=== PATIENT | male | born 1985 | race Caucasian/White ===

== ENCOUNTER 2020-06-01 08:51 | Outpatient (REF) | payer OTHER, SELFPAY ==
[2020-06-01 10:33] LABS: COVID-19 Test Negative (Negative)
== END 2020-06-01 08:52 | disposition home or self-care (01) ==
LOC: HO.LAB 08:51
PROVIDERS: PCP Nurse Practitioner Family; Visit Provider Internal Medicine
DX: Z20.828 Contact with and (suspected) exposure to other viral communicable diseases (principal)
CPT/HCPCS: 87635

== ENCOUNTER 2020-06-02 17:50 | Outpatient (REF) | payer OTHER, SELFPAY ==
[2020-06-02 20:30] LABS: SARS COV2 PCR INHOUSE NEGATIVE (Negative)
== END 2020-06-02 17:51 | disposition home or self-care (01) ==
LOC: HO.LAB 17:50
PROVIDERS: Visit Provider Internal Medicine
DX: Z20.828 Contact with and (suspected) exposure to other viral communicable diseases (principal)
CPT/HCPCS: 87635

== ENCOUNTER 2020-06-05 10:50 | Outpatient (REF) | payer OTHER, SELFPAY ==
[2020-06-05 11:24] LABS: COVID-19 Test Negative (Negative)
== END 2020-06-05 10:51 | disposition home or self-care (01) ==
LOC: HO.LAB 10:50
PROVIDERS: Visit Provider Internal Medicine
DX: Z20.828 Contact with and (suspected) exposure to other viral communicable diseases (principal)
CPT/HCPCS: 87635

== ENCOUNTER 2020-06-15 14:21 | Outpatient (REF) | payer OTHER, SELFPAY ==
[2020-06-16 06:43] LABS: COVID-19 Test Negative (Negative)
== END 2020-06-15 14:22 | disposition home or self-care (01) ==
LOC: HO.LAB 14:21
PROVIDERS: Visit Provider Internal Medicine
DX: Z20.828 Contact with and (suspected) exposure to other viral communicable diseases (principal)
CPT/HCPCS: 87635

== ENCOUNTER 2020-08-25 20:53 | Outpatient (REF) | payer OTHER, SELFPAY ==
[2020-08-25 21:22] LABS: COVID-19 Test Negative (Negative)
== END 2020-08-25 20:54 | disposition home or self-care (01) ==
LOC: HO.EMPCOV 20:53
PROVIDERS: Visit Provider Internal Medicine
DX: Z20.822 Contact with and (suspected) exposure to COVID-19 (principal)
CPT/HCPCS: 36415; 87635

== ENCOUNTER 2021-07-25 11:19 | Outpatient (REF) | payer OTHER, SELFPAY ==
[2021-07-25 11:41] LABS: COVID-19 Test Negative (Negative); IDNOW Serial# 9DD0AD1C
== END 2021-07-25 11:20 | disposition home or self-care (01) ==
LOC: HO.LAB 11:19
PROVIDERS: Visit Provider Internal Medicine
DX: Z20.822 Contact with and (suspected) exposure to COVID-19 (principal)
CPT/HCPCS: 36415; 87635

== ENCOUNTER 2021-08-18 07:27 | Outpatient (REF) | payer OTHER, SELFPAY ==
[2021-08-18 08:08] LABS: COVID-19 Test Negative (Negative); IDNOW Serial# 9DD0AD1C
== END 2021-08-18 07:28 | disposition home or self-care (01) ==
LOC: HO.LAB 07:27
PROVIDERS: Visit Provider Internal Medicine
DX: Z20.822 Contact with and (suspected) exposure to COVID-19 (principal)
CPT/HCPCS: 87635

== ENCOUNTER 2021-08-25 08:51 | Outpatient (REF) | payer OTHER, SELFPAY ==
[2021-08-25 09:18] LABS: COVID-19 Test Negative (Negative)
== END 2021-08-25 08:52 | disposition home or self-care (01) ==
LOC: HO.LAB 08:51
PROVIDERS: Visit Provider Internal Medicine
DX: Z20.822 Contact with and (suspected) exposure to COVID-19 (principal)
CPT/HCPCS: 87635

== ENCOUNTER 2021-11-09 14:10 | Outpatient (REF) | payer OTHER, SELFPAY ==
--- NOTE | ~2021-11-09 | XR_ITS ---
EXAMINATION: XR CHEST CLINICAL INFORMATION: Wheezing COMPARISON: None TECHNIQUE: 2 views of the chest were obtained. FINDINGS: No significant abnormality is noted involving the heart, lungs, mediastinum, bony thorax or soft tissues. XR/XR chest 2V IMPRESSION: Unremarkable examination.
== END 2021-11-09 14:11 | disposition home or self-care (01) ==
LOC: HO.HMGCX 14:10
PROVIDERS: PCP Nurse Practitioner Family; Visit Provider Nurse Practitioner Family
DX: R06.2 Wheezing (principal)
CPT/HCPCS: 71046

== ENCOUNTER 2023-04-04 08:52 | Outpatient (AMB) | payer OTHER, SELFPAY ==
[2023-04-04 09:06] VITALS: BP 120/78; PULSE 56; O2SAT 98; BMI 23.9
--- NOTE | 2023-04-04 09:06 | MHC.PC.OV ---
Vital Signs 04/04/23 09:06 Height 5 ft 9.6 in Weight 164 lb 6 oz BMI 23.9 BP 120/78 Blood Pressure Location Lt brachial Position Sitting Pulse 56 Pulse Source Pulse Oximeter Pulse Oximetry (%) 98 Oxygen Delivery Method Room Air Intake Visit Reasons: Annual PE Allergies No Known Allergies [No Known Allergies*] Allergy (Verified 04/04/23 09:08) Medication List - Last Reconciled 04/04/23 by FRANCISCO Mccabe fluoxetine (Prozac) 10 mg PO DAILY fluoxetine (Prozac) 20 mg PO DAILY Tobacco use date assessed: 04/04/23 Dental Screening Dental Screen Date: 04/04/23 Did you have a dental visit in the last 12 months?: No Did you have a dental problem in the last 6 months where you did not have access to dental care?: No Was dental information given to patient?: Patient has dentist HPI Annual PE HPI Details Pt is here for a PE. Will order labs. Pt c/o tenderness to his right 1st MTP joint for months. Will order xr and check uric acid. Pt is also hard of hearing, will refer for hearing screen. 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 Brother No problems noted. Son No problems noted. Son No problems noted. Social History Housing: House Alcohol intake: never Patient Tobacco Use Status: Never used Tobacco e-Cigarette/Vaping Use: Never Used Second Hand Smoke Exposure: No service: No Current occupational status: employed Current occupation: [employer] Current occupational exposures/hazards: Yes Cognitive needs: No Hearing needs: No Vision needs: No Questionnaire Thrive Questionnaire Date Thrive assessed: 11/09/21 DWAIN-7 AMB Questionnaire DWAIN-7 Date DWAIN - 7 assessed: 11/09/21 Source: Developed by Drs. Omari Saldivar, Juliette North, Maximiliano Franco and colleagues, with an educational kellen from [employer]). Review of Systems Const Denies chills and Denies fever(s) Eyes Denies blurry vision ENT Denies vertigo, Denies dizziness and Denies sore throat Card Denies chest pain at rest, Denies chest pain with activity, Denies diaphoresis, Denies dyspnea and Denies dyspnea on exertion Resp Denies cough, Denies dyspnea, Denies dyspnea on exertion and Denies wheezing GI Denies abdominal pain, Denies melena, Denies hematochezia, Denies constipation, Denies diarrhea and Denies loose stools Denies hematuria Musc Denies numbness and Denies tingling Skin/Breast Denies lesions Neuro Denies vertigo, Denies dizziness, Denies numbness and Denies tingling Psych Denies anxiety, Denies depression, Denies homicidal ideation, Denies suicidal ideation and Denies other (substance abuse) Aller/Immun Denies wheezing Physical exam (Primary Care) Vital Signs: Last Vital Signs Pulse 56 04/04/23 09:06 BP 120/78 04/04/23 09:06 Pulse Ox 98 04/04/23 09:06 Oxygen Delivery Method Room Air 04/04/23 09:06 BMI result Body Mass Index 23.9 Tobacco/Smoking Status: Tobacco use Status Tobacco use date assessed 04/04/23 04/04/23 09:13 Patient Tobacco Use Status Never used Tobacco 04/04/23 09:13 e-Cigarette/Vaping Use Never Used 04/04/23 09:13 Thrive Assessment: Date of Thrive Assessment Date Thrive assessed 11/09/21 04/04/23 09:13 Const General: cooperative Nutritional Appearance: well nourished Orientation/consciousness: patient oriented x3 HENMT Head: Yes normal to inspection, Yes normocephalic and Yes atraumatic Ears: TM's normal bilaterally Eyes General: appearance normal, both eyes and all related structures Alignment and Position: alignment normal and position normal Neck Neck: Yes normal visual inspection and Yes no lymphadenopathy Thyroid: Thyroid normal Resp Effort & Inspection: normal respiratory effort Auscultation: clear to auscultation bilaterally Cardio Rate: regular rate Rhythm: regular rhythm Heart sounds: S1 normal heart sound present, S2 normal heart sound present and no murmurs GI Palpation (GI): Soft to palpation and nontender Auscultation: normal bowel sounds Male General Exam: Yes normal external exam Penis: normal penis Scrotum: scrotum normal, testes descended bilaterally and no inguinal hernias Testes: no testicular mass Skin Rashes: no rashes Neuro General: patient oriented x3, moves all extremities, no focal motor deficits and deep tendon reflexes 2+ bilaterally Romberg Test: Negative Extrem Other: right 1st MTP joint pronounced, not TTP Psych Appearance: grossly normal Mental Status: mental status grossly normal Speech and movement: Normal speech and movement present Affect: normal affect Attitude: cooperative Thought process: Normal thought process present Thought content: Normal thought content present Insight: Good insight present (Psych) Judgement: Good judgement present (Psych) Assessment and Plan Assessment & Plan (1) Physical exam: Code(s): Z00.00 - Encounter for general adult medical examination without abnormal findings Plan: Labs ordered (2) Toe pain, right: Code(s): M79.674 - Pain in right toe(s) Plan: XR and uric acid ordered (3) KAKE (hard of hearing): Code(s): H91.90 - Unspecified hearing loss, unspecified ear Plan: Referred for hearing screen Plan The patient agreed to the use of a medical registrar for this encounter. Scribed for FRANCISCO Henry by Debra Vora medical registrar, on 04/04/2023 at 09:20 EST. Orders: Orders Uric Acid Today M79.674 - Pain in right toe(s) XR toe RT min 2V Today M79.674 - Pain in right toe(s) Referrals Speech and Hearing Referral H91.90 - Unspecified hearing loss, unspecified ear Coding Level of Care Code Est Pt Prev Care [id number]) Diagnoses Physical exam Z00.00 Toe pain, right M79.674 KAKE (hard of hearing) H91.90
== END 2023-04-04 09:35 | disposition home or self-care (01) ==
PROVIDERS: Visit Provider Nurse Practitioner Family
DX: Z00.00 Encounter for general adult medical examination without abnormal findings (principal); M79.674 Pain in right toe(s); H91.90 Unspecified hearing loss, unspecified ear
CPT/HCPCS: 99395

== ENCOUNTER 2023-04-04 09:36 | Outpatient (REF) | payer OTHER, SELFPAY ==
--- NOTE | ~2023-04-04 | XR_ITS ---
EXAMINATION: XR TOES, RIGHT CLINICAL INFORMATION: Pain in toe. COMPARISON: None available. TECHNIQUE: 3 views of the right 1st toe were obtained. FINDINGS: There are no fractures or dislocations. No joint effusion is identified. No bone, joint or soft tissue abnormality is demonstrated. XR/XR toe RT min 2V IMPRESSION: Unremarkable examination.
[2023-04-04 11:15] LABS: MANUAL DIFF FLAG NO
[2023-04-04 11:39] LABS: Basophils Percent Auto 0.7 % (0-2); Eosinophils Absolute Auto 0.2 X10*3/uL (0.0-0.4); Eosinophils Percent Auto 3.6 % (0-4); Hematocrit 42.5 % (42.0-52.0); Hemoglobin 14.1 g/dl (14.0-18.0); Imm Gran Abs Auto 0.01 X10*3/uL (0.00-0.03); Imm Gran Pct Auto 0.2 % (0.0-0.4); Lymphocytes Absolute Auto 1.5 X10*3/uL (1.2-4.9); Lymphocytes Percent Auto 34.8 % (20-40); Mean Corpuscular HGB Conc 33.2 g/dl (31.0-36.0); Mean Corpuscular Hemoglobin 31.2 pg (27.0-33.0); Monocytes Absolute Auto 0.5 X10*3/uL (0.1-1.2); Monocytes Percent Auto 10.9 % (2-11); Neutrophils Absolute Auto 2.2 x10*3/uL (2.0-8.3); Neutrophils Percent Auto 49.8 % (45-73); Platelet Count 208 X10*3/uL (160-400); Red Blood Count 4.52 X10*6/uL (4.60-5.80); Red Cell Distribution Width 12.8 % (11.0-16.0); White Blood Count 4.4 X10*3/uL (4.8-10.8)
[2023-04-04 12:25] LABS: Alanine Aminotransferase 47 U/L (0-40); Albumin Level 4.2 g/dL (3.5-5.0); Alkaline Phosphatase 47 U/L (39-117); Anion Gap 11 (12-20); Aspartate Amino Transferase 29 U/L (5-37); Bilirubin Total 0.4 mg/dL (0.0-1.0); Blood Urea Nitrogen 13 mg/dL (9-16); Calcium 9.8 mg/dL (8.4-10.2); Carbon Dioxide 28 mmol/L (22-29); Chloride 106 mmol/L (96-108); Cholesterol 241 mg/dL (<200); Estimated Glomerular Filt Rate > 60; Glucose Fasting 92 mg/dL (60-99); HDL Cholesterol 70 mg/dL (>40); LDL Cholesterol Calculated 160 mg/dL (<100); Potassium 4.1 mmol/L (3.3-5.1); Sodium 141 mmol/L (135-145); TSH reflex Free T4 1.15 uIU/mL (0.32-4.0); Triglycerides 55 mg/dL (<150); Uric Acid 4.9 mg/dL (3.4-7.0)
[2023-04-04 14:15] LABS: Appearance Urine Clear; Color Urine Yellow; Glucose Urine UA Negative (Negative); Leukocyte Esterase Urine Negative (Negative); Nitrite Urine Negative (Negative); PH 7.5 (5.0-9.0); Specific Gravity - Urine 1.015 (1.005-1.025); Urine Blood Negative (Negative); Urine Ketones Negative (Negative); Urine Protein Negative (Neg-Trace)
== END 2023-04-04 09:37 | disposition home or self-care (01) ==
LOC: HO.HMGCX 09:36
PROVIDERS: PCP Nurse Practitioner Family; Visit Provider Nurse Practitioner Family
DX: M79.674 Pain in right toe(s) (principal); Z00.00 Encounter for general adult medical examination without abnormal findings
CPT/HCPCS: 36415; 73660; 80053; 80061; 81003; 84443; 84550; 85025

== ENCOUNTER 2023-05-11 08:16 | Outpatient (REF) | payer OTHER, SELFPAY ==
--- NOTE | ~2023-05-11 | US_ITS ---
EXAMINATION: US ABDOMEN COMPLETE CLINICAL INFORMATION: Abnormal levels of other serum enzymes. COMPARISON: CT abdomen and pelvis 10/23/2018. TECHNIQUE: Real-time imaging of the abdominal viscera. FINDINGS: PANCREAS: Normal. ABDOMINAL AORTA: The proximal, mid, and distal segments are normal in caliber. INFERIOR VENA CAVA: Visualized portions are normal. LIVER: Normal. The liver is normal in size. The liver contour is normal. Parenchymal echogenicity is normal. No focal hepatic lesion. There is no intrahepatic biliary duct dilatation seen. GALLBLADDER: Normal. The gallbladder is physiologically distended without evidence of stones, sludge, polyps, wall thickening or pericholecystic fluid. COMMON BILE DUCT: Normal in caliber measuring 0.5 cm in diameter. RIGHT KIDNEY: Normal. No hydronephrosis. No renal calculi or focal parenchymal lesions. The kidney measures 12.4 cm in maximum dimension. LEFT KIDNEY: Normal. No hydronephrosis. No renal calculi or focal parenchymal lesions. The kidney measures 10.8 cm in maximum dimension. SPLEEN: Normal. The spleen measures 10.1 cm in maximum dimension. FREE FLUID: None. US/US abdomen complete IMPRESSION: Unremarkable examination.
[2023-05-11 10:26] LABS: Alanine Aminotransferase 24 U/L (0-40); Albumin Level 4.4 g/dL (3.5-5.0); Alkaline Phosphatase 40 U/L (39-117); Anion Gap 15 (12-20); Aspartate Amino Transferase 21 U/L (5-37); Bilirubin Total 0.4 mg/dL (0.0-1.0); Blood Urea Nitrogen 14 mg/dL (9-16); Calcium 9.4 mg/dL (8.4-10.2); Carbon Dioxide 25 mmol/L (22-29); Chloride 105 mmol/L (96-108); Cholesterol 234 mg/dL (<200); Estimated Glomerular Filt Rate > 60; Glucose Fasting 94 mg/dL (60-99); HDL Cholesterol 69 mg/dL (>40); LDL Cholesterol Calculated 157 mg/dL (<100); Potassium 4.4 mmol/L (3.3-5.1); Sodium 141 mmol/L (135-145); Total Protein 6.9 g/dL (6.5-8.0); Triglycerides 44 mg/dL (<150)
[2023-05-11 10:45] LABS: HBS Num1 81.61 mIU/mL (0-7.99); HBc Num1 0.06 S/CO (0.00-0.79); HBsAGNum1 0.42 S/CO (0.00-0.99); Hepatitis A Antibody IgM 0.19 Index (0-0.79); Hepatitis B Core Antibody Nonreactive (Nonreactive); Hepatitis B Surface Antigen Negative (Negative); ~HepC Num1 0.04 S/CO (0.00-0.79); ~Hepatitis A Antibody IgM Nonreactive (Nonreactive); ~Hepatitis B Surface Antibody REACTIVE (Nonreactive); ~Hepatitis C Antibody Nonreactive (Nonreactive)
== END 2023-05-11 08:17 | disposition home or self-care (01) ==
LOC: HO.US 08:16
PROVIDERS: Visit Provider Nurse Practitioner Family
DX: R74.8 Abnormal levels of other serum enzymes (principal); E78.5 Hyperlipidemia, unspecified
CPT/HCPCS: 36415; 76700; 80053; 80061; 86704; 86706; 86709; 86803; 87340

== ENCOUNTER 2024-06-03 08:10 | Emergency (ER) | payer OTHER, SELFPAY ==
--- NOTE | ~2024-06-03 | CT_ITS ---
EXAMINATION: CT ABDOMEN AND PELVIS WITH CONTRAST CLINICAL INFORMATION: Severe lower abdominal pain with nausea and vomiting COMPARISON: 10/23/2018 TECHNIQUE: Multidetector volumetric images were obtained from the superior aspect of the liver through the pubic symphysis following administration 85 mL of Omnipaque 350 intravenous contrast. Sagittal and coronal reformatted images were obtained on the technologist's workstation. Oral contrast: No This CT examination was performed using dose optimization techniques as appropriate, variously including the following: *Automated exposure control *Adjustment of mA and/or kV according to patient size (this includes techniques or standardized protocols for targeted exams where dose is matched to indication/reason for exam; i.e. extremities or head) *Use of iterative reconstruction technique DLP: 379 mGy-cm FINDINGS: [employer] INTERN: Nonobstructive bowel pattern. Clear lungs LUNG BASES: The visualized lung bases are unremarkable. LIVER, GALLBLADDER, AND BILIARY TREE: The liver is normal in size, shape, and attenuation. No focal hepatic lesion or biliary ductal dilatation is present. The gallbladder is unremarkable with no evidence of radiopaque gallstones, gallbladder wall thickening, or obvious pericholecystic inflammatory changes. PANCREAS: Poorly delineated from unopacified bowel loops. No definite abnormality. SPLEEN: Unremarkable. ADRENAL GLANDS: Unremarkable. KIDNEYS AND URETERS: The kidneys are normal in size, shape, and attenuation. No hydronephrosis, hydroureter, or calculi seen. No perinephric stranding. BLADDER: Unremarkable. GASTROINTESTINAL TRACT: Study limited due to paucity of fat and the lack of oral contrast. Unremarkable stomach. Possible distended thickened left upper quadrant jejunal loop. Nonobstructive bowel pattern. Appendix cannot be adequately identified. No significant fecal retention. ABDOMINAL WALL: No significant hernia is appreciated. LYMPH NODES: Normal. VASCULAR: Unremarkable. PELVIC VISCERA: Symmetric mildly prominent seminal vesicles. No free fluid or free air. OSSEOUS STRUCTURES: Unremarkable. CT/CT abdomen pelvis w IV con IMPRESSION: 1. Study limited by paucity of fat and lack of oral contrast. 2. Question distended thickened left upper quadrant jejunal loop. 3. Nonvisualization of the appendix. 4. Consider repeat study with oral contrast. Fleischner guidelines were followed. Electronically signed by: Sherrie Arteaga MD 06/03/2024 12:38 PM EDT
[2024-06-03 08:13] VITALS: BP 125/77; PULSE 62; RESP 16; TEMP 36.6; O2SAT 100; BMI 24.4
--- NOTE | 2024-06-03 08:21 | ED.ABDPAIN ---
HPI - Abdominal Pain General Chief Complaint: Abdominal Pain Stated Complaint: Vomiting Time Seen by Provider: 06/03/24 08:15 Source: patient Mode of arrival: ambulatory Limitations: no limitations History of Present Illness ED Provider: Jo Ann Storm PA-C HPI narrative: 39 yo male presents to the ER for evaluation of of abdominal pain, nausea and vomiting that started last night. Patient reports he had some upset stomach, abdominal cramping and difficulty having bowel movements yesterday during the day. He had decreased p.o. intake throughout the day. States last night after he put his kids to bed he developed nausea and recurrent vomiting. He developed lower abdominal pain in the middle that shoots up to the upper portion of his abdomen. The pain has been constant, doubling him over in pain, with episodes of sweating. No episodes of diarrhea but he did have a couple of bowel movements yesterday, they were small and loose. No blood in his bowel movements or his vomit. No fevers but has been having sweats and chills. He reports the pain in his abdomen is severe and constant. His children have recently had strep throat. He reports sore throat due to vomiting. MD elicited complaint: abdominal pain Pertinent past history: none Onset (ago): hour(s) Pain Consistency: constant Location: suprapubic Severity: severe Quality: cramping and stabbing Radiation: epigastric Migration to: no migration Exacerbating factors: nothing Relieving factors: nothing Context: sick contacts Associated symptoms: nausea and vomiting Related Data Home Medications ?Medication ?Instructions ?Recorded ?Confirmed fluoxetine 10 mg capsule (Prozac) 10 mg PO DAILY 04/04/23 04/04/23 fluoxetine 20 mg capsule (Prozac) 20 mg PO DAILY 04/04/23 04/04/23 Previous Rx's ?Medication ?Instructions ?Recorded ondansetron 4 mg disintegrating 4 mg PO Q8H PRN nausea and 06/03/24 tablet vomiting #14 tabs Allergies Allergy/AdvReac Type Severity Reaction Status Date / Time No Known Allergies Allergy Verified 06/03/24 08:13 [No Known Allergies*] Review of Systems Review of Systems Yes all other systems are reviewed and are negative PMFSH Past Medical History Medical History Chilling 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 Brother No problems noted. Son No problems noted. Son No problems noted. Social History Social History Housing: House Alcohol intake: never Patient Tobacco Use Status: Never used Tobacco Smoked in Last 30 Days: No e-Cigarette/Vaping Use: Never Used Second Hand Smoke Exposure: No Use of substances other than those prescribed or required for medical reasons: No Advance Directives: No Advance Directives Information Provided: Yes Do you have a plan to hurt others: No Plan service: No Current occupational status: employed Current occupation: [employer] Current occupational exposures/hazards: Yes Cognitive needs: No Hearing needs: No Vision needs: No Physical Exam ED Vital Signs: Vital Signs - 24 hr 06/03/24 08:13 06/03/24 11:17 Temperature 97.8 F 98.0 F Pulse Rate 62 64 Respiratory Rate 16 13 Blood Pressure 125/77 122/70 Pulse Oximetry 100 97 Oxygen Delivery Method Room Air Room Air BMI result Body Mass Index 24.4 Appearance: Alert. Oriented X3. Appears pale, appears very uncomfortable Head: normocephalic, atraumatic. Eyes: Pupils equal, round and reactive to light. ENT: Pharynx normal. No tonsillar swelling or exudate. Neck: Normal inspection. Neck supple. CVS: Normal heart rate and rhythm. Pulses normal. Respiratory: No respiratory distress. Breath sounds normal. Abdomen: Soft, diffusely tender +BS x4 Skin: Skin warm and dry. Normal skin color. Normal skin turgor. No rashes. Extremities: No lower extremity edema. No joint swelling. Neuro/psych: Oriented X 3. No motor deficit. No sensory deficit. CN II-XII intact. Normal speech and cognition. Medical Decision Making Medical Decision Making MDM Narrative: 39-year-old male presents to the ER for evaluation of severe lower abdominal pain associated with nausea and vomiting that started last night. He does have known sick contacts with his children who had strep throat at home. He arrives to the ER pale, unwell appearing, nauseous and in severe pain. His abdomen is tender. IV was established and he was given IV Zofran and morphine. Lab work is reassuring with no leukocytosis, no significant metabolic derangement. Normal renal function, normal lipase. He had minimal relief after Zofran and morphine so he was given a dose of IV Dilaudid and a 2nd dose of Zofran. This significantly improved his symptoms. A CT scan of his abdomen was performed which was limited however did not show any evidence of appendicitis, no significant colonic bowel loop dilatation. There was a question of distended or thickened left upper quadrant jejunal loop. No evidence of obstruction. Patient is overall clinically significantly improved. He is tolerating p.o.. No need for repeating the CT scan with oral contrast. Most likely viral gastroenteritis. He is stable for discharge home with supportive care and outpatient follow-up. Differential Diagnosis Differential Diagnoses: The differential diagnosis associated with the presentation includes Gastroenteritis, cholecystitis, appendicitis, colitis, bowel obstruction, mesenteric adenitis Admission/Observation Consideration of admission/observation: Escalation of care including admission/observation considered Lab Data MDM Lab Attestation statement: I reviewed the patient's lab results. No leukocytosis, no major metabolic derangement, slight hyperglycemia without anion gap 06/03/24 08:28 06/03/24 08:28 Labs: Lab Results 06/03/24 06/03/24 Range/Units 08:28 13:07 WBC 7.9 (4.8-10.8) X10*3/uL RBC 4.57 L (4.60-5.80) X10*6/uL Hgb 14.7 (14.0-18.0) g/dl Hct 41.4 L (42.0-52.0) % MCV 90.6 (80.0-98.0) fL MCH 32.2 (27.0-33.0) pg MCHC 35.5 (31.0-36.0) g/dl RDW 12.4 (11.0-16.0) % Plt Count 287 D (160-400) X10*3/uL MPV 9.6 (9.4-12.4) fL Immature Gran % (Auto) 0.5 H (0.0-0.4) % Neut % (Auto) 81.1 H (45-73) % Lymph % (Auto) 10.1 L (20-40) % [place] % (Auto) 7.9 (2-11) % Eos % (Auto) 0.0 (0-4) % Baso % (Auto) 0.4 (0-2) % Lymph # (Auto) 0.8 L (1.2-4.9) X10*3/uL [place] # (Auto) 0.6 (0.1-1.2) X10*3/uL Eos # (Auto) 0.0 (0.0-0.4) X10*3/uL Baso # (Auto) 0.0 (0.0-0.2) X10*3/uL Abs Immat Gran (auto) 0.04 H (0.00-0.03) X10*3/uL Absolute Neuts (auto) 6.4 (2.0-8.3) x10*3/uL Absolute Nucleated RBC 0.000 (0.0-0.012) X10*3/uL Nucleated RBC % (auto) 0.0 (0.0-0.2) /100WBC Sodium 143 (135-145) mmol/L Potassium 3.8 (3.3-5.1) mmol/L Chloride 110 H (96-108) mmol/L Carbon Dioxide 22 (22-29) mmol/L Anion Gap 15 (12-20) BUN 13 (9-16) mg/dL Creatinine 1.05 (0.5-1.4) mg/dL Estim Creat Clear Calc 97.5 Estimated GFR > 60 Random Glucose 179 H (60-115) mg/dL Calcium 10.4 H D (8.4-10.2) mg/dL Magnesium 1.7 (1.6-2.6) mg/dL Total Bilirubin 0.8 (0.0-1.0) mg/dL Direct Bilirubin 0.2 (0.0-0.5) mg/dL AST 24 (5-37) U/L ALT 20 (0-40) U/L Alkaline Phosphatase 48 (39-117) U/L Total Protein 7.2 (6.5-8.0) g/dL Albumin 4.8 (3.5-5.0) g/dL Lipase 14 (8-78) U/L Urine Color Yellow Urine Appearance Clear Urine pH 7.5 (5.0-9.0) Ur Specific [place] >= 1.030 H (1.005-1.025) Urine Protein Trace (Neg-Trace) mg/dL Urine Glucose (UA) Negative (Negative) mg/dL Urine Ketones 40 (Negative) mg/dL Urine Blood Negative (Negative) Urine Nitrite Negative (Negative) Ur Leukocyte Esterase Negative (Negative) Influenza Type A (PCR) NEGATIVE (Negative) Influenza Type B (PCR) NEGATIVE (Negative) RSV RNA Qual (PCR) NEGATIVE (Negative) SARS-CoV-2 RNA (RT-PCR) NEGATIVE (Negative) S. pyogenes GrpA ARNIE Negative (Negative) Independent Interpretation I performed an independent interpretation of an: CT Scan Interpretation: CT scan without any significant dilated loops of bowel, unable to visualize the appendix, no significant abnormality appreciated, agrees radiology read Radiology Impression Discussion of test interpretation with radiology: I have reviewed the radiologist's reading. Radiologist Impression: CT/CT abdomen pelvis w IV con IMPRESSION: 1. Study limited by paucity of fat and lack of oral contrast. 2. Question distended thickened left upper quadrant jejunal loop. 3. Nonvisualization of the appendix. 4. Consider repeat study with oral contrast. Independent Historian Clinical information obtained from an independent historian. History obtained from or confirmed by: Spouse External Record Review External record reviewed: Outpatient record, Prior outpatient labs and Prior outpatient radiology Tests considered The following testing was considered but not selected: CT scan with oral contrast was considered however he improved dramatically he was able to tolerate p.o., pain much improved Prescription Management I considered prescription management with: Pain Medication and Antibiotic Medications Administered Discontinued Medications Generic Name Dose Route Start Last Admin Trade Name Freq PRN Reason Stop Dose Admin Hydromorphone HCl 1 mg 06/03/24 08:53 06/03/24 09:04 Hydromorphone Hcl 1 Mg/Ml Syringe IVPUSH 06/03/24 08:54 1 mg ONCE ONE Administration Protocol Lactated Ringer's 1,000 mls @ 999 mls/hr 06/03/24 08:15 06/03/24 09:32 Lr IV 06/03/24 09:15 Infused .Q1H1M YAMIL Infusion Iohexol 100 ml 06/03/24 12:10 06/03/24 12:10 Iohexol 350 Mg/Ml 100 Ml Infus..Btl IV 06/03/24 12:11 85 ml ONCE ONE Administration Morphine Sulfate 4 mg 06/03/24 08:16 06/03/24 08:31 Morphine Sulfate 4 Mg/Ml Cartridge IVPUSH 06/03/24 08:17 4 mg ONCE ONE Administration Protocol Ondansetron HCl 4 mg 06/03/24 08:16 06/03/24 08:30 Ondansetron Hcl 4 Mg/2 Ml Vial IVPUSH 06/03/24 08:17 4 mg ONCE ONE Administration Ondansetron HCl 4 mg 06/03/24 08:53 06/03/24 09:01 Ondansetron Hcl 4 Mg/2 Ml Vial IVPUSH 06/03/24 08:54 4 mg ONCE ONE Administration Critical Care Time Critical Care Time Critical Care Time: Yes Total Critical Care Time: 32 Attestation: I have personally provided critical care time exclusive of time spent on separately billable procedures. Time includes review of lab data, radiology results, bedside re-evaluation of mental status and hemodynamics after administration of multiple IV doses of narcotics and monitoring for potential decompensation. Intervention performed as documented. Discharge Plan Discharge Clinical Impression: Gastroenteritis Patient Disposition: Home, Self-Care Instructions: Gastroenteritis (DC) Additional Instructions: You lab workup today was unremarkable. Your urine test was negative for infection. You most likely have a viral GI bug also known as gastroenteritis. Treatment is supportive care, symptoms usually resolve on their own in 48-72 hours. Recommend rest and plenty of oral hydration. Stick to a bland diet like soup and toast while you are not feeling well. Take the prescribed medication as needed for nausea. Recommend over the counter Pepto Bismol or Imodium for upset stomach and diarrhea. Follow up with your doctor as needed. If you develop new or worsening symptoms call 911 or come back to the ER for further evaluation. Prescriptions: New ondansetron 4 mg tablet,disintegrating 4 mg PO Q8H PRN (Reason: nausea and vomiting) Qty: 14 0RF No Action fluoxetine [Prozac] 10 mg capsule 10 mg PO DAILY fluoxetine [Prozac] 20 mg capsule 20 mg PO DAILY Stand Alone Forms: Work/School Release Print Language: Georgian
[2024-06-03] MEDS: ondansetron HCL 4 MG/2 ML VIAL IVPUSH ×2 (08:30→09:01)
[2024-06-03] MEDS: Morphine Sulfate 4 MG/ML CARTRIDGE IVPUSH (08:31)
[2024-06-03] MEDS: Lactated Ringers 1,000 ML 999 ML IV (08:36)
[2024-06-03 08:43] LABS: MANUAL DIFF FLAG NO
[2024-06-03 08:44] LABS: Basophils Percent Auto 0.4 % (0-2); Hematocrit 41.4 % (42.0-52.0); Hemoglobin 14.7 g/dl (14.0-18.0); Imm Gran Abs Auto 0.04 X10*3/uL (0.00-0.03); Imm Gran Pct Auto 0.5 % (0.0-0.4); Lymphocytes Absolute Auto 0.8 X10*3/uL (1.2-4.9); Lymphocytes Percent Auto 10.1 % (20-40); Mean Corpuscular HGB Conc 35.5 g/dl (31.0-36.0); Mean Corpuscular Hemoglobin 32.2 pg (27.0-33.0); Mean Corpuscular Volume 90.6 fL (80.0-98.0); Mean Platelet Volume 9.6 fL (9.4-12.4); Monocytes Absolute Auto 0.6 X10*3/uL (0.1-1.2); Monocytes Percent Auto 7.9 % (2-11); Neutrophils Absolute Auto 6.4 x10*3/uL (2.0-8.3); Neutrophils Percent Auto 81.1 % (45-73); Platelet Count 287 X10*3/uL (160-400); Red Blood Count 4.57 X10*6/uL (4.60-5.80); Red Cell Distribution Width 12.4 % (11.0-16.0); White Blood Count 7.9 X10*3/uL (4.8-10.8)
--- NOTE | 2024-06-03 08:45 | PC.NURSE ---
patient presents from home with cc of abdominal pain and vomiting that started less than one day ago. patient states 2 kids are at home with strep throat, but also recently started complaining of abdominal pain as well. patient denies any fevers, has some diffuse tenderness to abdomen, patient presents pale and appears uncomfortable, endorsing 5-6/10 abdominal pain and associated nausea and vomiting, most recent episode of vomiting was PHYSIATRIST. patient afebrile in triage, 18g PIV placed in left bicep, blood work obtained and patient medicated per OCT. educated patient on need for urine sample. patient provided with warm blankets for comfort. awaiting lab results at this time
[2024-06-03 08:56] LABS: IDNOW Serial# 6674DD1D; Strep A Nucleic Acid Negative (Negative)
[2024-06-03] MEDS: HYDROmorphone HCl 1 MG/ML SYRINGE IVPUSH (09:04)
[2024-06-03 09:10] LABS: Alanine Aminotransferase 20 U/L (0-40); Albumin Level 4.8 g/dL (3.5-5.0); Alkaline Phosphatase 48 U/L (39-117); Anion Gap 15 (12-20); Aspartate Amino Transferase 24 U/L (5-37); Bilirubin Direct 0.2 mg/dL (0.0-0.5); Bilirubin Total 0.8 mg/dL (0.0-1.0); Blood Urea Nitrogen 13 mg/dL (9-16); Calcium 10.4 mg/dL (8.4-10.2); Carbon Dioxide 22 mmol/L (22-29); Chloride 110 mmol/L (96-108); Creatinine Clr Calc Pharmacy 97.5; Estimated Glomerular Filt Rate > 60; Glucose Random 179 mg/dL (60-115); Lipase 14 U/L (8-78); Magnesium 1.7 mg/dL (1.6-2.6); Potassium 3.8 mmol/L (3.3-5.1); Sodium 143 mmol/L (135-145); Total Protein 7.2 g/dL (6.5-8.0)
[2024-06-03 09:20] LABS: Influenza A PCR NEGATIVE (Negative); Influenza B PCR NEGATIVE (Negative); Resp Syncy Virus RNA Qual PCR NEGATIVE (Negative); SARS COV2 PCR INHOUSE NEGATIVE (Negative)
[2024-06-03 11:17] VITALS: BP 122/70; PULSE 64; RESP 13; TEMP 36.7; O2SAT 97
[2024-06-03] MEDS: iohexoL 350 MG/ML 100 ML INFUS..BTL IV (12:10)
--- NOTE | 2024-06-03 12:43 | PC.NURSE ---
patient returned from CT scan, endorsing relief of symptoms, states he occasionally has a wave of discomfort but is feeling much better, awaiting CT results at this time
[2024-06-03 13:15] LABS: Appearance Urine Clear; Color Urine Yellow; Glucose Urine UA Negative (Negative); Leukocyte Esterase Urine Negative (Negative); Nitrite Urine Negative (Negative); PH 7.5 (5.0-9.0); Specific Gravity - Urine >= 1.030 (1.005-1.025); Urine Blood Negative (Negative); Urine Ketones 40 mg/dL (Negative); Urine Protein Trace mg/dL (Neg-Trace)
[2024-06-03 13:47] VITALS: BP 122/70; PULSE 64; RESP 13; TEMP 36.7; O2SAT 97
== END 2024-06-03 13:50 | disposition home or self-care (01) ==
PROVIDERS: Physician Assistant; Emergency Provider Emergency Medicine
DX: K52.9 Noninfective gastroenteritis and colitis, unspecified (principal); R10.2 Pelvic and perineal pain; R11.2 Nausea with vomiting, unspecified; R10.13 Epigastric pain; Z03.818 Encounter for observation for suspected exposure to other biological agents ruled out; Z79.899 Other long term (current) drug therapy
CPT/HCPCS: 0241U; 74177; 80048; 80076; 81003; 83690; 83735; 85025; 87651; 96361; 96374; 96375; 96376; 99284; J1171; J2270; J2405; J7120; Q9967

== ENCOUNTER 2024-08-29 13:02 | Emergency (ER) | payer OTHER, SELFPAY ==
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
[2024-08-29 13:06] VITALS: BP 134/75; PULSE 86; RESP 16; TEMP 36.6; O2SAT 98; BMI 23.1
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
[2024-08-29] MEDS: Acetaminophen 325 MG TABLET 650 MG PO (13:56)
[2024-08-29 14:05] VITALS: BP 134/75; PULSE 86; RESP 16; TEMP 36.6; O2SAT 98
== END 2024-08-29 14:08 | disposition home or self-care (01) ==
PROVIDERS: Emergency Provider Emergency Medicine; PCP Nurse Practitioner Family
DX: Z04.2 Encounter for examination and observation following work accident (principal); M79.662 Pain in left lower leg; M54.2 Cervicalgia; M54.9 Dorsalgia, unspecified
CPT/HCPCS: 72040; 72072; 99283

== ENCOUNTER → 2024-08-29 13:04 | Outpatient (BNV) | payer OTHER, SELFPAY | PROVIDERS: Emergency Provider Emergency Medicine; PCP Nurse Practitioner Family; Visit Provider Radiology Diagnostic Radiology | DX: T14.90XA Injury, unspecified, initial encounter (principal) | CPT/HCPCS: 72040; 72072 ==

== ENCOUNTER 2025-01-17 07:25 | Outpatient (REF) | payer OTHER, SELFPAY ==
[2025-01-17 07:43] LABS: MANUAL DIFF FLAG NO
[2025-01-17 08:55] LABS: Eosinophils Absolute Auto 0.1 X10*3/uL (0.0-0.4); Eosinophils Percent Auto 3.6 % (0-4); Hematocrit 41.2 % (42.0-52.0); Lymphocytes Absolute Auto 1.8 X10*3/uL (1.2-4.9); Lymphocytes Percent Auto 46.4 % (20-40); Mean Corpuscular Hemoglobin 31.7 pg (27.0-33.0); Mean Corpuscular Volume 93.4 fL (80.0-98.0); Mean Platelet Volume 9.5 fL (9.4-12.4); Monocytes Absolute Auto 0.5 X10*3/uL (0.1-1.2); Monocytes Percent Auto 12.7 % (2-11); Neutrophils Absolute Auto 1.4 x10*3/uL (2.0-8.3); Neutrophils Percent Auto 36.3 % (45-73); Platelet Count 257 X10*3/uL (160-400); Red Blood Count 4.41 X10*6/uL (4.60-5.80); Red Cell Distribution Width 12.3 % (11.0-16.0); White Blood Count 3.9 X10*3/uL (4.8-10.8)
[2025-01-17 09:09] LABS: Appearance Urine Clear; Color Urine Yellow; Glucose Urine UA Negative (Negative); Leukocyte Esterase Urine Negative (Negative); Nitrite Urine Negative (Negative); PH 7.5 (5.0-9.0); Specific Gravity - Urine <= 1.005 (1.005-1.025); Urine Blood Negative (Negative); Urine Ketones Negative (Negative); Urine Protein Negative (Neg-Trace)
[2025-01-17 09:36] LABS: Alanine Aminotransferase 23 U/L (0-40); Albumin Level 4.5 g/dL (3.5-5.0); Alkaline Phosphatase 48 U/L (39-117); Anion Gap 9 (12-20); Aspartate Amino Transferase 23 U/L (5-37); Bilirubin Total 0.6 mg/dL (0.0-1.0); Blood Urea Nitrogen 15 mg/dL (9-16); Calcium 9.4 mg/dL (8.4-10.2); Carbon Dioxide 29 mmol/L (22-29); Chloride 106 mmol/L (96-108); Cholesterol 238 mg/dL (<200); Estimated Glomerular Filt Rate > 60; Glucose Fasting 91 mg/dL (60-99); HDL Cholesterol 63 mg/dL (>40); LDL Cholesterol Calculated 160 mg/dL (<100); Sodium 140 mmol/L (135-145); Total Protein 6.7 g/dL (6.5-8.0); Triglycerides 76 mg/dL (<150)
[2025-01-17 09:58] LABS: TSH reflex Free T4 1.03 uIU/mL (0.32-4.0)
== END 2025-01-17 07:26 | disposition home or self-care (01) ==
LOC: HO.LAB 07:25
PROVIDERS: PCP Nurse Practitioner Family; Visit Provider Nurse Practitioner Family
DX: Z00.00 Encounter for general adult medical examination without abnormal findings (principal)
CPT/HCPCS: 36415; 80053; 80061; 81003; 84443; 85025

== ENCOUNTER 2025-01-19 08:21 | Outpatient (AMB) | payer OTHER, SELFPAY ==
[2025-01-19 08:31] VITALS: BP 120/72; PULSE 73; O2SAT 97; BMI 23.5
--- NOTE | 2025-01-19 08:31 | MHC.PC.OV ---
Vital Signs 01/19/25 08:31 Height 5 ft 10 in Weight 164 lb BMI 23.5 BP 120/72 Blood Pressure Location Lt brachial Position Sitting Pulse 73 Pulse Source Pulse Oximeter Pulse Oximetry (%) 97 Oxygen Delivery Method Room Air Intake Visit Reasons: Annual PE Adjunct Writing Instructor Required: No Allergies No Known Allergies [No Known Allergies*] Allergy (Verified 01/19/25 08:31) Medication List - Last Reconciled 01/19/25 by FRANCISCO Mccabe fluoxetine (Prozac) 40 mg PO DAILY Tobacco use date assessed: 01/19/25 Dental Screening Dental Screen Date: 01/19/25 Did you have a dental visit in the last 12 months?: Yes Did you have a dental problem in the last 6 months where you did not have access to dental care?: No Was dental information given to patient?: Patient has dentist HPI Annual PE HPI Details History of Present Illness The patient is a 39-year-old male presenting with right big toe pain and decreased sexual desire. The toe pain is centralized at the MTP joint, with a family backdrop of gout and bunions, leading to potential considerations of hereditary connections. While pain is absent upon palpation, pronounced crepitus with joint movement is observed, causing functional discomfort. Additional symptoms of decreased sexual desire and increased fatigue have been noteworthy, with fatigue and soreness affecting his daily life. Leukopenia was previously noted in laboratory workups, alongside a positive EUGENE, which may suggest an autoimmune investigation. Despite these findings and complaints, the patient denies chest pain, respiratory distress, or abdominal symptoms. Overall health remains satisfactory by his account, and his visit here is to evaluate and manage these presenting issues. Health Maintenance - Evaluate uric acid levels to assess gout risk. - Discussed obtaining an x-ray of the right big toe to evaluate structural concerns. - Review of testosterone levels due to decreased sexual desire and fatigue. Social History Review of Systems - Musculoskeletal: Reports right big toe pain localized at the MTP joint with crepitus upon movement. - Sexual: Reports decreased sexual desire. - Constitutional: Reports fatigue and soreness; denies chest pain, shortness of breath, abdominal pain, blood in stool, constipation, diarrhea. - Psychological: Denies suicidal or homicidal ideation. Physical Exam General: Cooperative, healthy appearing, comfortable, no acute distress and well developed Orientation: Patient oriented x3 Limitations: No limitations Head: Normal to inspection Ears: Hearing grossly normal bilaterally Nose: Normal external nose present Face and sinus: Normal facial exam Eyes: Appearance normal, both eyes and all related structures Neck: Normal visual inspection and Yes full ROM Respiratory: Normal respiratory effort and able to speak in complete sentences. Clear to auscultation bilaterally Cardiovascular: Regular rate and rhythm. Normal S1 and S2 GI: Normal to inspection. Soft to palpation and nontender gu: no testicular lesions noted or hernias Skin: No rashes or lesions noted Neuro: Patient oriented x3 Extremities: Enlarged MTP joint on the right big toe with crepitus noted, no pain with palpation, pain with movement Results - Labs: History of leukopenia. - Tests: Positive EUGENE in past laboratory evaluations. Plan I plan to obtain serum uric acid levels to evaluate for gout, and I will arrange an x-ray of the right big toe to check for any structural issues or degenerative changes. Evaluating testosterone levels is necessary to address decreased sexual desire and fatigue. The plan includes repeating a CBC due to historical leukopenia, and monitoring will be vital to observe any fluctuations associated with positive EUGENE. Discussion Notes I discussed with the patient the potential causes of his toe pain, including gout, given his family history and current symptoms. We also deliberated on addressing decreased sexual desire through laboratory evaluation of testosterone levels. The implications of leukopenia and EUGENE positivity were conversed, including monitoring strategies for hematologic and autoimmune concerns. Diagnostic tests such as uric acid levels and x-ray imaging were reviewed, with plans to reassess them during follow-up consultations. It was emphasized that we will carefully monitor the complete blood count and hormone levels for better understanding and managing these conditions. Patient Instructions - Follow up on uric acid and testosterone level labs. - Schedule an x-ray for the right big toe. - Monitor for changes in symptoms and report any significant changes. - Return for follow-up to discuss lab results and management plan. 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 Brother No problems noted. Son No problems noted. Son No problems noted. Social History Housing: House Alcohol intake: never Patient Tobacco Use Status: Never used Tobacco e-Cigarette/Vaping Use: Never Used Second Hand Smoke Exposure: No service: No Current occupational status: employed Current occupation: [employer] Current occupational exposures/hazards: Yes Cognitive needs: No Hearing needs: No Vision needs: No Questionnaire PHQ-9 Over the last 2 weeks, how often have you been bothered by any of the following problems? 1. Little interest or pleasure in doing things: not at all 2. Feeling down, depressed, or hopeless: not at all 3. Trouble falling or staying asleep, or sleeping too much: not at all 4. Feeling tired or having little energy: several days 5. Poor appetite or overeating: not at all 6. Feeling bad about yourself - or that you are a failure or have let yourself or your family down: not at all 7. Trouble concentrating on things, such as reading the newspaper or watching television: not at all 8. Moving or speaking so slowly that other people could have noticed. Or the opposite - being so fidgety or restless that you have been moving around a lot more than usual: not at all 9. Thoughts that you would be better off or of hurting yourself in some way: not at all Total score: 1 Depression Screening Interpretation: Negative Depression Screening Done: Yes 18363 - PHQ-9 Billing: Yes Source: Developed by Drs. Omari Saldivar, Juliette North, Maxiimliano Franco and colleagues, with an educational kellen from [employer]. Thrive Questionnaire Date Thrive assessed: 01/19/25 I am a: Patient What is your living situation today?: I have a steady place to live Within the past 12 months, did the food you bought not last and you didn't have the money to get more?: Never true Within the past 12 months, did you worry whether your food would run out before you got money to buy more?: Never true Do you have trouble paying for medicines?: No Do you have trouble getting transportation to medical appointments?: No Do you have trouble paying your heating and electricity bill?: No Do you have trouble taking care of your child, family member or friend?: No Do you have trouble with day-to-day activities such as bathing, preparing meals, shopping, managing finances, etc.?: No Are you currently unemployed and looking for a job?: No Are you interested in more education?: I choose not to answer this question Please select the resources that you would like help with: None Currently or been in a relationship where the following occur: No concerns reported THRIVE Score: 0 AUDIT C Alcohol Use Questionnaire (AUDIT-C) 1. How often do you have a drink containing alcohol?: Never 3. How often do you have six or more drinks on one occasion?: Never Total Score: 0 Score Reviewed/Action Taken: Yes DWAIN-7 AMB Questionnaire DWAIN-7 Date DWAIN - 7 assessed: 01/19/25 Feeling nervous, anxious, or on edge: 0 = Not at all Not being able to stop or control worryin = Not at all Worrying too much about different things: 0 = Not at all Trouble relaxin = Not at all Being so restless that it is hard to sit still: 0 = Not at all Becoming easily annoyed or irritable: 0 = Not at all Feeling afraid as if something awful might happen: 0 = Not at all Total DWAIN-7 score (0-4 normal; 5-9 mild; 10-14 moderate; 15-21 severe): 0 Source: Developed by Drs. Omari Saldivar, Juliette North, Maximiliano Franco and colleagues, with an educational kellen from [employer]. DWAIN-7 Assessment Billing DWAIN-7 Assessment Tool: DWAIN-7 Assessment 02577 Physical exam (Primary Care) Vital Signs: Last Vital Signs Pulse 73 01/19/25 08:31 BP 120/72 01/19/25 08:31 Pulse Ox 97 01/19/25 08:31 Oxygen Delivery Method Room Air 01/19/25 08:31 BMI result Body Mass Index 23.5 Tobacco/Smoking Status: Tobacco use Status Tobacco use date assessed 01/19/25 01/19/25 08:32 Patient Tobacco Use Status Never used Tobacco 01/19/25 08:32 e-Cigarette/Vaping Use Never Used 01/19/25 08:32 PHQ-9: PHQ-9 Score PHQ-9: Total score 1 01/19/25 08:47 Depression Screening Interpretation: Negative Thrive Assessment: Date of Thrive Assessment Date Thrive assessed 01/19/25 01/19/25 08:32 Currently or been in a relationship where the following occur: No concerns reported Coding Level of Care Code Est Pt Prev Care 18-39y([id number]) Diagnoses Toe pain, right M79.674 Lack of sexual desire F52.0 Leukopenia D72.819 Additional Codes DWAIN-7 Assessment Billing - DWAIN-7 Assessment Tool: DWAIN-7 Assessment 38268 ([id number]) PHQ-9 - 65987 - PHQ-9 Billing: Yes ([id number]) Assessment & Plan Assessment & Plan (1) Toe pain, right: Code(s): M79.674 - Pain in right toe(s) Category: Medical (2) Lack of sexual desire: Code(s): F52.0 - Hypoactive sexual desire disorder Category: Medical (3) Leukopenia: Code(s): D72.819 - Decreased white blood cell count, unspecified Category: Medical Plan . Orders: Orders Uric Acid Today M79.674 - Pain in right toe(s) XR toe RT min 2V Today M79.674 - Pain in right toe(s) Testosterone, Free/Total Today F52.0 - Hypoactive sexual desire disorder Complete Blood Count Auto Diff Today D72.819 - Decreased white blood cell count, unspecified
== END 2025-01-19 09:31 | disposition home or self-care (01) ==
LOC: HO.HMCC 08:22
PROVIDERS: PCP Nurse Practitioner Family; Visit Provider Nurse Practitioner Family
DX: Z00.00 Encounter for general adult medical examination without abnormal findings (principal); M79.674 Pain in right toe(s); F52.0 Hypoactive sexual desire disorder; D72.819 Decreased white blood cell count, unspecified

== ENCOUNTER → 2025-01-19 08:21 | Outpatient (BNVA) | payer OTHER, SELFPAY | PROVIDERS: PCP Nurse Practitioner Family; Visit Provider Nurse Practitioner Family | DX: Z00.01 Encounter for general adult medical examination with abnormal findings (principal); M79.674 Pain in right toe(s); F52.0 Hypoactive sexual desire disorder; D72.819 Decreased white blood cell count, unspecified; Z13.31 Encounter for screening for depression; Z13.30 Encounter for screening examination for mental health and behavioral disorders, unspecified | CPT/HCPCS: 96127; 99395 ==

== ENCOUNTER 2025-06-07 16:57 | Emergency (ER) | payer OTHER, SELFPAY ==
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
[2025-06-07 17:02] VITALS: BP 158/78; PULSE 81; RESP 18; TEMP 36.6; O2SAT 97; BMI 25.3
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
[2025-06-07 18:18] VITALS: BP 112/71; PULSE 66; RESP 16; TEMP 36.8; O2SAT 95
[2025-06-07 19:55] VITALS: BP 112/71; PULSE 66; RESP 16; TEMP 36.8; O2SAT 95
== END 2025-06-07 19:56 | disposition home or self-care (01) ==
PROVIDERS: Emergency Provider Emergency Medicine; PCP Nurse Practitioner Family
DX: S02.2XXA Fracture of nasal bones, initial encounter for closed fracture (principal); S06.0X0A Concussion without loss of consciousness, initial encounter; R51.9 Headache, unspecified; M54.2 Cervicalgia; Y04.2XXA Assault by strike against or bumped into by another person, initial encounter; Y93.9 Activity, unspecified; Y92.9 Unspecified place or not applicable; Y99.8 Other external cause status; Z79.899 Other long term (current) drug therapy
CPT/HCPCS: 70450; 70486; 72125; 99284

== ENCOUNTER → 2025-06-07 17:03 | Outpatient (BNV) | payer OTHER, SELFPAY | PROVIDERS: Emergency Provider Emergency Medicine; PCP Nurse Practitioner Family; Visit Provider Student in an Organized Health Care Education/Training Program | DX: R51.9 Headache, unspecified (principal); S02.2XXA Fracture of nasal bones, initial encounter for closed fracture; Y09 Assault by unspecified means | CPT/HCPCS: 70450; 70486; 72125 ==